=== PATIENT | female | born 1935 | race Caucasian/White ===

== ENCOUNTER → 2016-07-01 | Outpatient (CLI) | payer OTHER, MEDICARE ==
[~2016-07-01] MED LIST: ACET-1256 PO; ALOE VERA PO; DIAZ-165 PO; IBUP-1050 PO; METO25TA3 PO; METO25TA56 PO
== END | disposition home or self-care (01) ==
LOC: C.PATHSPEC 13:18
PROVIDERS: ATTEND Obstetrics & Gynecology
DX: R93.8 Abnormal findings on diagnostic imaging of other specified body structures (principal)

== ENCOUNTER → 2016-07-01 | Outpatient (CLI) | payer OTHER, MEDICARE | END | disposition home or self-care (01) | LOC: C.PAPS 15:26 | PROVIDERS: ATTEND Obstetrics & Gynecology | DX: Z12.4 Encounter for screening for malignant neoplasm of cervix (principal) ==

== ENCOUNTER → 2016-07-21 | Outpatient (CLI) | payer OTHER, MEDICARE ==
[~2016-07-21] MED LIST changes: -ACET-1256 PO; -ALOE VERA PO; -IBUP-1050 PO; -METO25TA3 PO
[2016-07-21 13:09] LABS: BASO % 0.2 %; BASO ABS # 0.02 K/uL (0-0.2); COMPLETE YES; EOS % 0.5 %; HEMATOCRIT 45.1 % (37-47); IG% 0.1 %; LYMPH % 17.9 %; LYMPH ABS # 1.54 K/uL (1.2-3.4); MEAN CELL VOLUME 94.7 fL (80-100); MEAN CORPUSCULAR HEMOGLOBIN 30.7 pg (25-34); MEAN CORPUSCULAR HGB CONC 32.4 g/dl (32-36); MEAN PLATELET VOLUME 10.9 fL (7.4-10.4); MONO % 10.9 %; NEUT % 70.4 %; PLATELET COUNT 248 K/uL (130-400); RED BLOOD COUNT 4.76 M/uL (4.2-5.4); WHITE BLOOD COUNT 8.61 K/uL (4.8-10.8)
== END | disposition home or self-care (01) ==
LOC: C.LAB1850 12:15
PROVIDERS: ATTEND Obstetrics & Gynecology
DX: Z01.818 Encounter for other preprocedural examination (principal); R93.8 Abnormal findings on diagnostic imaging of other specified body structures

== ENCOUNTER → 2016-08-06 | Day surgery (SDC) | payer OTHER, MEDICARE ==
[2016-07-16 14:27] VITALS: Ht 165.1 cm; Wt 61.4 kg
--- NOTE | 2016-07-21 16:39 | HISTORY & PHYSICAL EXAMINATION ---
DATE OF ADMISSION: 08/06/2016 ADMITTING DIAGNOSES: 1. Thickened endometrial lining on ultrasound. 2. Probable endometrial polyp. ADMISSION HISTORY OF PRESENT ILLNESS: The patient is a 81-year-old -0-0-1 postmenopausal female who is admitted for diagnostic hysteroscopy and D\T\C for thickened endometrial lining with probable endometrial polyp. The patient had an episode of pelvic pain, abdominal pain last month and had a pelvic ultrasound ordered by her primary care provider. Ultrasound findings showed a thickened endometrium. The patient went through the menopause uneventfully approximately 25 years ago and has had no bleeding since that time. Because of the ultrasound findings, the patient had an endometrial biopsy in the office which showed probable endometrial polyp. Treatment options were discussed with the patient and she has been admitted for the above listed procedure. PAST MEDICAL HISTORY: OBSTETRICAL: x2. GYNECOLOGY: As above. MEDICAL: Hypertension, irritable bowel. SURGICAL: None. ALLERGIES: TO ASPIRIN. SOCIAL HISTORY: No smoking. FAMILY HISTORY: Noncontributory. REVIEW OF SYSTEMS: As per HPI. ADMISSION PHYSICAL EXAMINATION: GENERAL: Shows a pleasant female in no acute distress. VITAL SIGNS: A blood pressure 160/82, a height of 5 feet 3 inches and a weight 140 pounds. HEENT EXAMINATION: Unremarkable. NECK: Supple. LUNGS: Clear. HEART: With a regular rhythm and rate. Grade 1/6 systolic ejection murmur along the left sternal border. ABDOMEN: Soft, nontender. PELVIC: Shows atrophic external genitalia. The vaginal vault is pale with decreased rugation. The cervix is multiparous and atrophic. Bimanual examination shows a small anterior uterus. Adnexa show no palpable masses. RECTAL: Confirmatory. EXTREMITIES: Shows no deep calf tenderness. NEUROLOGIC: Grossly intact. IMPRESSION: A 81-year-old 2, para 2-0-0-1 postmenopausal female with thickened endometrium on ultrasound with probable endometrial polyp. PLAN: Risks, benefits and alternatives to the surgery have been discussed. While the benefits will be removal of any tissue on the uterine lining, the risks are bleeding, infection, inadvertent perforation of the uterus, failure to diagnose and/or treat the problem. The patient understands this. The permit has been signed and she wishes to proceed.
[~2016-08-06] VITALS: Ht 165.1 cm; Wt 61.4 kg
[~2016-08-06] MED LIST changes: +ATROPINE SULFATE 0.1 MG/ML 5ML SYR IV PRN; +DEXAMETHASONE SOD INJ 4 MG/ML VIAL ONE; +EpHEDrine SULFATE INJ 50 MG/ML AMP IV PRN; +FENTANYL CITRATE INJ 50 MCG/1 ML 2 ML VIAL IV PRN; +FENTANYL CITRATE INJ 50 MCG/1 ML 2 ML VIAL ONE; +FLUMAZENIL 0.1 MG/1 ML 10 ML VIAL IV PRN; +IBUPROFEN 600 MG TAB PO PRN; +KETOROLAC TROMETHAMINE 30 MG/ML VIAL IV. PRN; +LABETALOL HCL IV 5 MG/ML 20ML IV PRN; +LACTATED RINGER'S 1000ML 1,000 ML IV SCH; +LIDOCAINE HCL 2% 2 ML VIAL (20MG/ML) ONE; +NALOXONE HCL 0.4 MG/1 ML VIAL/CARP IV PRN; +ONDANSETRON INJ 2 MG/ML 2 ML VIAL IV PRN; +ONDANSETRON INJ 2 MG/ML 2 ML VIAL ONE; +PROMETHAZINE HCL INJ 12.5 MG in SODIUM CHLORIDE 0.9% 50ML 50 ML IV PRN; +PROPOFOL IV EMULSION 10 MG/ML 20 ML VIAL IV ONE; +SODIUM CHLORIDE 0.9% 1000ML 1,000 ML IV SCH
--- NOTE | 2016-08-06 11:13 | History & Physical Bridge - SC ---
H&P Re-Evaluation Bridge Note: I have examined the patient, reviewed the History & Physical and in the interval since the performance of the History & Physical I have noted the following changes of clinical significance: No changes noted
--- NOTE | 2016-08-06 11:51 | [facility] Post Operative Brief Note ---
Immediate Operative Summary Operative Date Aug 06, 2016. Pre-Operative Diagnosis 1) Thickened Endometrium 2) Probable endometrial polyp Post-Operative Diagnosis Same Procedure(s) Performed Diagnosticn Hysteroscopy Surgeon Dr Daniels Leather Stripping Machine Operator Surgeon(s) None Estimated Blood Loss 0ml Findings Hysteroscopic evaluation showed a denuded post-menopausal endometrial lining with no evidence of a polyp. Incidental finding of a small fundal septum. Fluid deficit 60cc Fluids (cc crystalloids) 600 Specimens None Drains None Anesthesia General Complication(s) None Disposition Recovery Room / PACU
--- NOTE | 2016-08-06 11:54 | Discharge Instructions-SurgCtr ---
Discharge Instructions Date of Service Aug 06, 2016. Visit Reason for Visit: Thickened Endometrium Discharge Discharge Diagnosis / Problem: same Discharge Goals Goal(s): Therapeutic intervention Activity Recommendations Activity Limitations: as noted below Anesthesia . Post Anesthesia Instructions: If you have had General Anesthesia or IV Sedation: * Do not drive today. * Resume driving when surgeon permits. * Do not make important decisions or sign legal documents today. * Call surgeon for: 1. Temperature elevations greater than 101 degrees F. 2. Uncontrollable pain. 3. Excessive bleeding. 4. Persistent nausea and vomiting. 5. Medication intolerance (nausea, vomiting or rash). * For nausea and vomiting use only clear liquids such as: tea, soda, bouillon until nausea subsides, then gradually increase diet as tolerated. * If you have any concerns or questions, call your surgeon's office. If physician is unavailable and it is an emergency, call 911 or go to the nearest emergency room. . Instructions / Follow-Up Instructions / Follow-Up ACTIVITY RECOMMENDATIONS: * Avoid tampons, douching, hot tubs, pools, and intercourse until bleeding has stopped. * May shower as usual. * No strenuous activity for 24-48 hours. After 24-48 hours, you may do anything you feel like doing (driving and sports are okay). SPECIAL CARE INSTRUCTIONS: Special Diet: * Mild nausea may occur in the immediate post-operative period. * Take clear liquids such as tea, cola or bouillon until all nausea has subsided; you may then resume your normal diet. Special Care: * Light bleeding and vaginal spotting can last from a few days to 3-4 weeks. Call your doctor if bleeding becomes heavier than the heaviest part of your period. * Check your temperature twice a day for one week. If it goes above 100.4 degrees Fahrenheit (38.0 Celsius), notify your doctor. * Call your doctor's office for an appointment for 6 weeks after your surgery. FOLLOW-UP VISIT: Call your doctor's office for an appointment for 6 weeks after your surgery. Diet Recommendations Home Diet: resume previous diet Procedures Procedures Performed: Diagnosticn Hysteroscopy Pending Studies Studies pending at discharge: no Medical Emergencies . Who to Call and When: Medical Emergencies: If at any time you feel your situation is an emergency, please call 911 immediately. . Non-Emergent Contact Non-Emergency issues call your: Audio Visual Coordinator Call Non-Emergent contact if: you have a fever, temperature is above 100.5 . . "Provider Documentation" section prepared by Jeyson Daniels. .
--- NOTE | 2016-08-06 11:57 | Medical Student: [facility] ---
Operative Report Operative Date Aug 06, 2016. Pre-Operative Diagnosis Endometrial thickening with possible endometrial polyp; pelvic/abd pain Post-Operative Diagnosis Post-menopausal uterus; no thickening of endometrium or polyp noted Procedure(s) Performed 1. Dilation 2. Hysteroscopy Surgeon Dr. Jeyson Daniels Electronic Industrial Controls Mechanic Surgeon(s) Estimated Blood Loss N/A Findings Bimanual exam revealed no adnexal mass or abnormalities; small, posterior- facing uterus. Hysteroscopy showed a post-menopausal uterus with no evidence of endometrial thickening and no evidence of an endometrial polyp. Specimens None collected Anesthesia General Complication(s) None Disposition Recovery Room / PACU Description of Procedure Patient was prepped with Betadine and draped using sterile technique. She was placed under general anesthesia using an LMA. A bimanual exam was performed and there were no adnexal masses or abnormalities noted. A speculum was used to expose the cervix, which was then grasped using a tenaculum. Cervix was dilated using successive dilators, sterile saline was placed into the uterine canal, and a scope was inserted into the canal. No endometrial thickening or endometrial polyps were seen; post-menopausal uterine lining was visualized with no apparent abnormalities. Scope and speculum were removed, and the dilating fluid was allowed to drain. No specimens were taken.
--- NOTE | 2016-08-06 11:59 | Medical Student: [facility] ---
Immediate Operative Summary Operative Date Aug 06, 2016. Pre-Operative Diagnosis Thickened endometrium visualized on ultrasound, probable endometrial polyp Post-Operative Diagnosis Normal appearing postmenopausal endometrium, No polyp visualized Procedure(s) Performed Hysteroscopic evaluation of the endometrium of the uterus Surgeon Dr. Daniels Architect Internship Surgeon(s) None Estimated Blood Loss 0 Findings Appearance of the endometrial lining is that of a pale, postmenopausal uterus. Subclinical septate uterus noted with no appreciable polyps or lesions visualized. Fluids (cc crystalloids) 600 Specimens None Drains None Anesthesia General Complication(s) None Disposition Recovery Room / PACU
--- NOTE | 2016-08-06 12:09 | OPERATIVE REPORT ---
DATE OF OPERATION: 08/06/2016 PREOPERATIVE DIAGNOSES: 1. Thickened endometrium, on ultrasound. 2. Probable endometrial polyp. POSTOPERATIVE DIAGNOSIS: Same. PROCEDURE PERFORMED: Diagnostic hysteroscopy. SURGEON: Dr. Daniels. ANESTHESIA: General. FINDINGS: Hysteroscopic examination of the uterus showed a denuded postmenopausal endometrial lining with no evidence of an endometrial polyp, small incidental finding of a fundal septum. Fluid deficit for the procedure 60 mL. PROCEDURE IN DETAIL: The patient was taken to the operating room and after general anesthesia, was placed in dorsolithotomy position and draped and prepped in the usual fashion. Bladder was drained of any residual urine. Single tooth tenaculum was used to grasp the anterior lip of the cervix. The cervical os was dilated with Sanderson dilators to a Sanderson #23. Operative hysteroscope was inserted into the endometrial cavity with description as above. No evidence of an endometrial polyp. Hysteroscope was removed. Fluid deficit for the procedure 60 mL. The patient was taken to the recovery room in satisfactory condition. I attest to the content of the Intraoperative Record and any orders documented therein. Any exception s are noted below.
[2016-08-06 13:09] VITALS: BP 168/83; PULSE 69; O2SAT 97
--- NOTE | 2016-08-06 13:18 | Anesthesia Progress Nt - [facility] ---
Anesthesia Post Op Note Date & Time Aug 06, 2016 at 13:18 Vital Signs Pain Intensity: 0 Vital Signs Past 12 Hours Date Time Temp Pulse Resp B/P (MAP) Pulse Ox O2 Delivery O2 Flow Rate FiO2 08/06/16 13:09 69 18 168/83 (111) 97 Room Air 08/06/16 12:58 18 184/80 (114) 96 Room Air 08/06/16 12:27 36.2 70 18 176/77 (110) 97 Room Air 08/06/16 12:25 36.4 08/06/16 12:23 74 16 08/06/16 12:23 74 16 98 08/06/16 12:22 170/74 (90) 08/06/16 12:18 73 6 97 08/06/16 12:18 73 6 08/06/16 12:16 168/82 (126) 08/06/16 12:13 77 17 08/06/16 12:13 77 17 99 08/06/16 12:11 165/84 (102) 08/06/16 12:08 74 19 08/06/16 12:08 74 19 100 08/06/16 12:06 162/81 (96) 08/06/16 12:03 75 16 08/06/16 12:03 75 16 100 08/06/16 12:01 162/70 (119) 08/06/16 11:58 77 20 08/06/16 11:58 77 20 100 08/06/16 11:56 164/82 (114) 08/06/16 11:53 83 08/06/16 11:53 83 171/84 (119) 100 08/06/16 11:52 36.5 82 16 171/84 100 Diffusion Mask 5 08/06/16 10:11 36.9 67 20 185/102 (129) 97 Room Air 171/103 (125) Notes Mental Status: alert / awake / arousable, participated in evaluation Pt Amnestic to Procedure: Yes Nausea / Vomiting: adequately controlled Pain: adequately controlled Airway Patency, RR, SpO2: stable & adequate BP & HR: stable & adequate Hydration State: stable & adequate Anesthetic Complications: no major complications apparent
== END | disposition home or self-care (01) ==
LOC: X.SURG 09:39
PROVIDERS: ATTEND Obstetrics & Gynecology
DX: R93.8 Abnormal findings on diagnostic imaging of other specified body structures (principal); Q51.2 Other doubling of uterus; I10 Essential (primary) hypertension; K58.9 Irritable bowel syndrome, unspecified; Z80.0 Family history of malignant neoplasm of digestive organs; Z79.899 Other long term (current) drug therapy

== ENCOUNTER → 2017-04-26 | Outpatient (CLI) | payer OTHER, MEDICARE ==
[~2017-04-26] MED LIST changes: -ATROPINE SULFATE 0.1 MG/ML 5ML SYR IV PRN; -DEXAMETHASONE SOD INJ 4 MG/ML VIAL ONE; -EpHEDrine SULFATE INJ 50 MG/ML AMP IV PRN; -FENTANYL CITRATE INJ 50 MCG/1 ML 2 ML VIAL IV PRN; -FENTANYL CITRATE INJ 50 MCG/1 ML 2 ML VIAL ONE; -FLUMAZENIL 0.1 MG/1 ML 10 ML VIAL IV PRN; -IBUPROFEN 600 MG TAB PO PRN; -KETOROLAC TROMETHAMINE 30 MG/ML VIAL IV. PRN; -LABETALOL HCL IV 5 MG/ML 20ML IV PRN; -LACTATED RINGER'S 1000ML 1,000 ML IV SCH; -LIDOCAINE HCL 2% 2 ML VIAL (20MG/ML) ONE; -NALOXONE HCL 0.4 MG/1 ML VIAL/CARP IV PRN; -ONDANSETRON INJ 2 MG/ML 2 ML VIAL IV PRN; -ONDANSETRON INJ 2 MG/ML 2 ML VIAL ONE; -PROMETHAZINE HCL INJ 12.5 MG in SODIUM CHLORIDE 0.9% 50ML 50 ML IV PRN; -PROPOFOL IV EMULSION 10 MG/ML 20 ML VIAL IV ONE; -SODIUM CHLORIDE 0.9% 1000ML 1,000 ML IV SCH
[2017-04-26 18:23] LABS: BASO % 0.3 %; BASO ABS # 0.02 K/uL (0-0.2); EOS % 1.8 %; EOS ABS # 0.13 K/uL (0-0.5); HEMATOCRIT 39.5 % (37-47); HEMOGLOBIN 13.1 g/dL (12.0-16.0); IG# 0.02 K/uL (0.00-0.02); LYMPH % 22.9 %; LYMPH ABS # 1.66 K/uL (1.2-3.4); MEAN CELL VOLUME 92.3 fL (80-100); MEAN CORPUSCULAR HEMOGLOBIN 30.6 pg (25-34); MEAN CORPUSCULAR HGB CONC 33.2 g/dl (32-36); MEAN PLATELET VOLUME 11.4 fL (7.4-10.4); MONO % 9.9 %; MONO ABS # 0.72 K/uL (0.11-0.59); NEUT % 64.8 %; PLATELET COUNT 236 K/uL (130-400); RED CELL DISTRIBUTION WIDTH CV 13.6 % (11.5-14.5); RED CELL DISTRIBUTION WIDTH SD 45.7 fL (36.4-46.3); WHITE BLOOD COUNT 7.25 K/uL (4.8-10.8)
[2017-04-26 18:33] LABS: ALBUMIN 3.8 gm/dl (3.4-5.0); ALT/SGPT 17 U/L (12-78); AST/SGOT 16 U/L (15-37); BLOOD UREA NITROGEN 18 mg/dl (7-18); CALCIUM 9.6 mg/dl (8.5-10.1); CARBON DIOXIDE 28 mmol/L (21-32); CHOLESTEROL 182 mg/dl (0-200); CREATININE 0.92 mg/dl (0.60-1.20); GLUCOSE 101 mg/dl (70-99); POTASSIUM 4.5 mmol/L (3.5-5.1); SODIUM 138 mmol/L (136-145)
[2017-04-26 18:35] LABS: ALKALINE PHOSPHATASE 63 U/L (45-117); LDL CHOLESTEROL CALCULATED 96 mg/dl
== END | disposition home or self-care (01) ==
LOC: C.LABSPEC 17:48
PROVIDERS: ATTEND Family Medicine
DX: I10 Essential (primary) hypertension (principal); E78.2 Mixed hyperlipidemia

== ENCOUNTER → 2017-11-01 | Outpatient (CLI) | payer OTHER, MEDICARE ==
[2017-11-01 18:19] LABS: BASO % 0.3 %; BASO ABS # 0.02 K/uL (0-0.2); EOS % 1.6 %; EOS ABS # 0.11 K/uL (0-0.5); HEMATOCRIT 40.2 % (37-47); HEMOGLOBIN 13.2 g/dL (12.0-16.0); IG# 0.02 K/uL (0.00-0.02); LYMPH % 21.6 %; LYMPH ABS # 1.49 K/uL (1.2-3.4); MEAN CELL VOLUME 95.9 fL (80-100); MEAN CORPUSCULAR HEMOGLOBIN 31.5 pg (25-34); MEAN CORPUSCULAR HGB CONC 32.8 g/dl (32-36); MONO % 10.4 %; MONO ABS # 0.72 K/uL (0.11-0.59); NEUT % 65.8 %; NEUT ABS # 4.55 K/uL (1.4-6.5); PLATELET COUNT 230 K/uL (130-400); RED CELL DISTRIBUTION WIDTH CV 12.7 % (11.5-14.5); RED CELL DISTRIBUTION WIDTH SD 43.9 fL (36.4-46.3); WHITE BLOOD COUNT 6.91 K/uL (4.8-10.8)
[2017-11-01 18:55] LABS: ALBUMIN 3.7 gm/dl (3.4-5.0); ALKALINE PHOSPHATASE 68 U/L (45-117); ALT/SGPT 19 U/L (12-78); AST/SGOT 17 U/L (15-37); BLOOD UREA NITROGEN 19 mg/dl (7-18); CALCIUM 8.9 mg/dl (8.5-10.1); CARBON DIOXIDE 23 mmol/L (21-32); CHOLESTEROL 213 mg/dl (0-200); CREATININE 1.03 mg/dl (0.60-1.20); GLUCOSE 123 mg/dl (70-99); LDL CHOLESTEROL CALCULATED 111 mg/dl; POTASSIUM 4.6 mmol/L (3.5-5.1); SODIUM 136 mmol/L (136-145); TOTAL PROTEIN 6.8 gm/dl (6.4-8.2)
== END | disposition home or self-care (01) ==
LOC: C.LABSPEC 17:46
PROVIDERS: ATTEND Family Medicine
DX: I10 Essential (primary) hypertension (principal); F41.1 Generalized anxiety disorder; E78.2 Mixed hyperlipidemia